=== PATIENT | female | born 1995 | race African-American/Black ===

== ENCOUNTER 2018-01-09 14:30 | Emergency (ER) | payer OTHER ==
[~2018-01-09] VITALS: Ht 147.3 cm; Wt 53.1 kg
[2018-01-09 14:36] VITALS: BP 109/80
[2018-01-09] MEDS ORDERED: SULF1TAB24 PO (14:46)
[2018-01-09] MEDS ORDERED: PHEN100T82 PO (14:46)
--- NOTE | 2018-01-09 14:46 | PHYS DOC ---
Adult General Chief Complaint Chief Complaint: MEDICATION REFILL [facility] HPI Patient is a 22 year old female who presents today requesting a new prescription for cephalexin, patient states a couple weeks ago she was diagnosed with UTI, she states she was given a prescription for cephalexin but did not feel it. She went to the pharmacy today to try and fill it, she was informed the prescription is too old she needs a new one. She states she still has dysuria. She states the last time she took cephalexin he did not clear her infection. Review of Systems Review of Systems Constitutional: Denies fever or chills [] Eyes: Denies change in visual acuity, redness, or eye pain [] HENT: Denies nasal congestion or sore throat [] Respiratory: Denies cough or shortness of breath [] Cardiovascular: No additional information not addressed in HPI [] GI: Denies abdominal pain, nausea, vomiting, bloody stools or diarrhea [] : Reports dysuria, denies hematuria [] Musculoskeletal: Denies back pain or joint pain [] Integument: Denies rash or skin lesions [] Neurologic: Denies headache, focal weakness or sensory changes [] All other systems were reviewed and found to be within normal limits, except as documented in this note. Physical Exam Physical Exam Constitutional: Well developed, well nourished, no acute distress, non-toxic appearance. [] HENT: Normocephalic, atraumatic, bilateral external ears normal, oropharynx moist, no oral exudates, nose normal. [] Eyes: PERRLA, EOMI, conjunctiva normal, no discharge. [] Neck: Normal range of motion, no tenderness, supple, no stridor. [] Cardiovascular:Heart rate regular rhythm, no murmur [] Lungs & Thorax: Bilateral breath sounds clear to auscultation [] Abdomen: Bowel sounds normal, soft, no tenderness, no masses, no pulsatile masses. [] Skin: Warm, dry, no erythema, no rash. [] Back: No tenderness, no CVA tenderness. [] Extremities: No tenderness, no cyanosis, no clubbing, ROM intact, no edema. [] Neurologic: Alert and oriented X 3, normal motor function, normal sensory function, no focal deficits noted. [] Psychologic: Affect normal, judgement normal, mood normal. [] EKG EKG [] Radiology/Procedures Radiology/Procedures [] Course & Med Decision Making Course & Med Decision Making Pertinent Labs and Imaging studies reviewed. (See chart for details) This is a 22-year-old female patient presenting to the ED today requesting a new prescription for antibiotics, she has one for cephalexin for UTI but did not fill the medication on time and hence rx has . She also states the last time she took cephalexin it did not clear her UTI. She was given Rx of Bactrim and Pyridium. F/u with PCP next week. Dragon Disclaimer Dragon Disclaimer This electronic medical record was generated, in whole or in part, using a voice recognition dictation system. Departure Departure Impression: Primary Impression: Medication refill Disposition: HOME, SELF-CARE Condition: STABLE Patient Instructions: Medication Refill, Emergency Department Additional Instructions: You were evaluated in the emergency room and a prescription for Bactrim was provided to you. Ensure you complete this medication. Push fluids. Take Pyridium as needed for pain. Take Tylenol/ Motrin as needed for pain too. Follow -up with your doctor next week. Scripts Sulfamethoxazole/Trimethoprim (BACTRIM DS TABLET) 1 Each Tablet 1 TAB PO BID, #14 TAB Prov: PARUL PALOMO APRN 01/09/18 Phenazopyridine Hcl (PYRIDIUM) 100 Mg Tablet 100 MG PO TID, #9 TAB Prov: PARUL PALOMO APRN 01/09/18 PARUL PALOMO APRN Jan 09, 2018 14:46
== END 2018-01-09 14:49 | disposition home or self-care (01) ==
LOC: ER 14:30
DX: R30.0 Dysuria (principal); Z76.0 Encounter for issue of repeat prescription; Z87.440 Personal history of urinary (tract) infections
CPT/HCPCS: 99283